=== PATIENT | female | born 1960 | race Caucasian/White ===

== ENCOUNTER → 2016-05-31 | Outpatient (CLI) | payer BC ==
[~2016-05-31] MED LIST: GADAVIST IV PRN
--- NOTE | 2016-05-31 16:20 | DIAGNOSTIC IMAGING REPORT ---
MRI OF THE BRAIN WITHOUT AND WITH IV CONTRAST CLINICAL HISTORY: R42 [id number] mental status change COMPARISON STUDY: No previous studies for comparison. TECHNIQUE: Utilizing a 1.5 Calista magnet and dedicated coil, multiplanar, multiecho imaging of the brain was performed pre and postcontrast administration. IV administration of 5.8 mL of Gadavist contrast was uneventful. FINDINGS: Diffusion-weighted images are unremarkable. Signal characteristics of the cerebellar as well as cerebral hemispheres are within normal limits. There is no evidence for abnormal postcontrast enhancement. Internal auditory canals are unremarkable. Sella and parasellar regions are unremarkable. IMPRESSION: Normal study. Electronically signed by: Dave Kwan M.D. 05/31/2016 4:18 PM Dictated Date/Time: 05/31/2016 4:14 PM
== END | disposition home or self-care (01) ==
LOC: C.MRI 14:57
PROVIDERS: ATTEND Physician Assistant Medical
DX: R42 Dizziness and giddiness (principal)

== ENCOUNTER → 2017-01-10 | Outpatient (CLI) | payer BC | END | disposition home or self-care (01) | LOC: C.RDSM 13:57 | PROVIDERS: ATTEND Physical Medicine & Rehabilitation Sports Medicine | DX: M21.611 Bunion of right foot (principal) ==

== ENCOUNTER → 2017-01-24 | Outpatient (CLI) | payer BC ==
[2017-01-24 14:58] LABS: CHOLESTEROL/HDL RATIO 1.9; THYROID STIMULATING HORMONE 1.85 uIu/ml (0.300-4.500)
== END | disposition home or self-care (01) ==
LOC: C.LABBC 10:34
PROVIDERS: ATTEND Physician Assistant Medical
DX: Z00.00 Encounter for general adult medical examination without abnormal findings (principal); K90.0 Celiac disease; K52.839 Microscopic colitis, unspecified